=== PATIENT | female | born 1960 | race Caucasian/White ===

== ENCOUNTER → 2018-05-05 | Outpatient (CLI) | payer OTHER ==
[2018-05-04 10:13] VITALS: BMI 21.7
[2018-05-05 14:21] VITALS: BP 130/73; PULSE 62; RESP 18; TEMP 98.2
--- NOTE | 2018-05-05 15:03 | P.CONS ---
History of Present Illness - Reason for Consult Consult date: 05/05/18 - Chief Complaint Lower back pain - History of Present Illness This is a 57-year-old female with chronic lower back pain. The patient is to go to the left.. Clinic and she was getting injections there however she states that she did not get good results after these injections and she was taking Moran but because of lack of its presence in her urine she was discharged from that clinic. She said that they discussed with her having RF ablation of the lumbar medial branches however she never received that. Her pain gets worse by activities and improves by using heat pads. She does use tobacco on a daily basis. She denies any bowel or bladder dysfunction or any weakness in the lower extremities. Past Medical History Past Medical History: Cancer, Hyperlipidemia, Myocardial Infarction (ID) Additional Past Medical History / Comment(s): BREAST CANCER. SILENT ID-DATE UNKNOWN Last Myocardial Infarction Date:: UNKNOWN History of Any Multi-Drug Resistant Organisms: None Reported Past Surgical History: Breast Surgery, Heart Catheterization, Tonsillectomy Additional Past Surgical History / Comment(s): LT MASTECTOMY. STEROID INJECTIONS-LAST ONE 09/2017. COLONOSCOPY Past Anesthesia/Blood Transfusion Reactions: Motion Sickness Past Psychological History: Anxiety Smoking Status: Current some day smoker Past Alcohol Use History: None Reported Additional Past Alcohol Use History / Comment(s): SMOKES < 1PP WEEK-OFF AND ON PAST 20 YEARS Past Drug Use History: None Reported - Past Family History Brother(s) Family Medical History: Cancer Additional Family Medical History / Comment(s): 2 BROTHERS WITH CANCER Sister(s) Family Medical History: Cancer Medications and Allergies Home Medications Medication Instructions Recorded Confirmed Type Acetaminophen [Tylenol 8 Hour] 650 mg PO DAILY 05/04/18 05/05/18 History Aspirin EC [Ecotrin Low Dose] 81 mg PO DAILY 05/04/18 05/05/18 History Cholecalciferol [Vitamin D3] 1,000 unit PO DAILY 05/04/18 05/05/18 History Cyanocobalamin (Vitamin B-12) 2,500 mcg PO DAILY 05/04/18 05/05/18 History [Vitamin B12] Flaxseed 1400 Mg 1,400 mg PO DAILY 05/04/18 05/05/18 History Gabapentin [Neurontin] 300 mg PO BID 05/04/18 05/05/18 History Garlic-Cardio Health 1 each PO DAILY 05/04/18 05/05/18 History Glucosam/Flo-Msm1/C/Rene/Bosw 2 each PO DAILY 05/04/18 05/05/18 History [Glucosamine-Chondroitin Tablet] Ibuprofen [Motrin] 400 mg PO BID 05/04/18 05/05/18 History Magnesium Oxide [Mag-Ox] 250 mg PO HS 05/04/18 05/05/18 History Nitroglycerin Sl Tabs [Nitrostat] 0.4 mg SUBLINGUAL Q5M PRN 05/04/18 05/05/18 History Simvastatin [Zocor] 20 mg PO HS 05/04/18 05/05/18 History Tumeric-1500mg 3,000 mg PO DAILY 05/04/18 05/05/18 History Allergies Allergy/AdvReac Type Severity Reaction Status Date / Time alendronate sodium Allergy Nausea & Verified 05/05/18 14:07 [From Fosamax] Vomiting levofloxacin [From Levaquin] Allergy CHEST Verified 05/05/18 14:07 PAIN, WEAKNESS, NAUSEA meloxicam [From Mobic] Allergy Rapid Verified 05/05/18 14:07 Heart Rate Physical Exam Vitals: Vital Signs Temp Pulse Resp BP 05/05/18 14:09 98.2 F 62 18 130/73 - EENT Eyes: PERRLA - Respiratory Respiratory: bilateral: CTA - Cardiovascular Rhythm: regular Heart sounds: normal: S1, S2 - Neurologic Neurologic: CNII-XII intact - Musculoskeletal The patient has tenderness in the lumbar paravertebral area bilaterally. Straight leg raising test negative bilaterally. Neuro exam of the lower extremities showed normal and symmetrical muscle strength and decreased but symmetrical knee reflexes, and absent ankle reflexes bilaterally. Facet loading test is positive - Psychiatric Psychiatric: A&O x's 3, appropriate affect, intact judgment & insight Assessment and Plan Plan: This is a 57-year-old female with lumbar spondylosis without myelopathy. The patient may benefit from getting lumbar medial branch block under fluoroscopic guidance left she gets more than 50% of Kenalog then we will plan on doing radiofrequency ablation in the future. The procedure was explained to the patient and her questions were answered. I encouraged the patient to quit smoking. I also refused to give her any prescriptions for opioids at this point.
== END | disposition home or self-care (01) ==
LOC: PNWHC3 13:21
PROVIDERS: ATTEND Anesthesiology
DX: G89.29 Other chronic pain (principal); M54.5 Low back pain; M47.816 Spondylosis without myelopathy or radiculopathy, lumbar region; E78.5 Hyperlipidemia, unspecified; I25.2 Old myocardial infarction; F17.200 Nicotine dependence, unspecified, uncomplicated; F41.9 Anxiety disorder, unspecified; Z79.891 Long term (current) use of opiate analgesic; Z79.82 Long term (current) use of aspirin; Z79.1 Long term (current) use of non-steroidal anti-inflammatories (NSAID); Z79.899 Other long term (current) drug therapy; Z95.5 Presence of coronary angioplasty implant and graft; Z90.12 Acquired absence of left breast and nipple; Z98.890 Other specified postprocedural states; Z85.3 Personal history of malignant neoplasm of breast; Z88.1 Allergy status to other antibiotic agents; Z88.6 Allergy status to analgesic agent; Z88.8 Allergy status to other drugs, medicaments and biological substances
CPT/HCPCS: 99211

== ENCOUNTER 2018-06-13 09:07 | Day surgery (SDC) | payer OTHER ==
[2018-06-08 13:10] VITALS: BMI 21.9
[~2018-06-13 09:07] MED LIST: LACTATED RINGERS 1,000 ML IV SCH
[2018-06-13 09:48] VITALS: RESP 18; TEMP 98.1
[2018-06-13] MEDS ORDERED: LIDOCAINE 1% 20 ML VIAL (10MG/ML) FOR IV START INTRADERMA ONE (10:22)
--- NOTE | 2018-06-13 11:10 | P.PCN ---
Date of Procedure: 06/13/18 Surgeon: Tereza Lopez Pathology: none sent Condition: stable Disposition: PACU Description of Procedure: PREOPERATIVE DIAGNOSIS : 1- Lumbar spondylosis with Facet Arthropathy without myelopathy . 2- Lumber degenerative disc disease POSTOPERATIVE DIAGNOSIS: 1- Lumbar spondylosis with Facet Arthropathy without myelopathy . 2- Lumber degenerative disc disease PROCEDURE: Diagnostic bilateral L3 -4 , L4 -5 , and L5-S1 medial branch block under fluoroscopy ANESTHESIA: Local with 1% lidocaine; IV sedation with Versed 2 mg . EBL: Negligible COMPLICATION: None. PROCEDURE INDICATION: Chronic low back pain secondary to Facet arthropathy unresponsive to conservative treatment. PROCEDURE DESCRIPTION: the patient was seen and identified in the preop holding area , risks and benefits and possible complications of the procedure and alternatives were discussed with the patient, and the patient agreed to proceed with the procedure and signed the consent. IV was started and vital signs monitored during the procedure and fluoroscopy was used to maximize the benefit and accuracy of the needle placement, sedation was given to decrease patient anxiety, patient was taken to the procedure room and placed in prone position vital signs monitored. The patient was brought into the procedure room and placed in prone position. Skin was prepped with Chloraprep and draped in a sterile manner. Lidocaine 1 % was used to numb the skin up at the target points that were chosen as follows : at the L5-S1 level which corresponds to the dorsal ramus of L5 the target points were at the superior medial aspect of the sacral ala on each side of the spine on the AP view of fluoroscopy, and for the L3 and L4 medial branches the target points were the connection between the transverse process and the superior to go process of L4 and L5 respectively on the oblique views of fluoroscopy. I used 22-gauge 3-1/2 inch Quincke spinal needles for this procedure and after contacting bone at the target points mentioned above I injected 1 mL of ropivacaine 0.5% PF . Patient tolerated procedure well. At the end of the procedure the needles removed and a bandage applied after the skin was cleaned the cleaning solution. patient was then taken to the recovery room in stable condition and monitored in the recovery room for 20-30 minutes and discharged home in stable condition after discharge criteria met . No steroids were used for this procedure due to the patient's sensitivity to steroids.
[2018-06-13] MEDS ORDERED: IV FLUID CONTINUATION 700 ML IV ONE (11:23)
--- NOTE | 2018-06-13 11:29 | FL ---
EXAMINATION TYPE: FL guided pain mgmt statistic DATE OF EXAM: 06/13/2018 CLINICAL HISTORY: Low back pain. TECHNIQUE: Fluoroscopy. COMPARISON: None. FINDINGS: Fluoroscopic guidance was provided during pain relief procedure performed by Dr. Lopez . A total of 7 seconds of fluoroscopic time was utilized during the procedure and 3 spot images are a cquired. Images acquired shows needle localization at L5 level. IMPRESSION: As Above.
[2018-06-13 11:44] VITALS: BP 116/72; PULSE 62
--- NOTE | 2018-06-15 14:53 | CDI ---
Date: 06/15/18 CDS/Word Processing Machine Operator Name: Marguerite Burton Phone: If any questions, call Nancy Aguilar Habilitation Training Specialist at [phone] Patient Name: Samira Howard Admit Date: 06/13/18 Discharge Date: 06/13/18 ATTENTION: The [facility] Coding Staff appreciate your assistance in clarifying documentation. Please respond to the clarification below the line at the bottom and electronically sign. The [facility] Coding staff will review the response and follow-up if needed. Please note: Queries are made part of the Legal Health Record. If you have any questions, please contact the Habilitation Training Specialist. Dear Dr. Lopez, Please provide clarification of the type of sedation provided. Operative report states IV sedation with versed. On the Pain Procedure Record under Anesthesia Plan, nothing is checked. Please clarify if MAC/unconscious sedation or Moderate/conscious sedation was provided. Thank you for your kind consideration MTDD
== END 2018-06-13 11:55 | disposition home or self-care (01) ==
LOC: ORPAIN 09:07
PROVIDERS: ATTEND Anesthesiology
DX: G89.29 Other chronic pain (principal); M47.816 Spondylosis without myelopathy or radiculopathy, lumbar region; M51.36 Other intervertebral disc degeneration, lumbar region; I25.2 Old myocardial infarction; Z85.3 Personal history of malignant neoplasm of breast; Z88.6 Allergy status to analgesic agent; Z88.8 Allergy status to other drugs, medicaments and biological substances
CPT/HCPCS: 64493; 64494; 64495; J2250; 99152

== ENCOUNTER 2018-06-27 08:07 | Day surgery (SDC) | payer OTHER ==
[2018-06-21 11:56] VITALS: BMI 21.9
[2018-06-27] MEDS ORDERED: LACTATED RINGERS 1,000 ML IV ONE (08:24)
[2018-06-27 08:35] VITALS: RESP 18; TEMP 97.8
[2018-06-27] MEDS ORDERED: LIDOCAINE 1% 20 ML VIAL (10MG/ML) FOR IV START INTRADERMA ONE (08:35)
[2018-06-27 08:46] LABS: Glucose,Whole Blood 101 mg/dL (75-99)
--- NOTE | 2018-06-27 09:56 | P.PCN ---
Date of Procedure: 06/27/18 Description of Procedure: Surgeon: Tereza Lopez Pathology: none sent Condition: stable Disposition: PACU Description of Procedure: PREOPERATIVE DIAGNOSIS : 1- Lumbar spondylosis with Facet Arthropathy without myelopathy . 2- Lumber degenerative disc disease POSTOPERATIVE DIAGNOSIS: 1- Lumbar spondylosis with Facet Arthropathy without myelopathy . 2- Lumber degenerative disc disease PROCEDURE: Diagnostic bilateral L3 -4 , L4 -5 , and L5-S1 medial branch block under fluoroscopy ANESTHESIA: Local with 1% lidocaine; IV sedation with Versed 2 mg . EBL: Negligible COMPLICATION: None. PROCEDURE INDICATION: Chronic low back pain secondary to Facet arthropathy unresponsive to conservative treatment. PROCEDURE DESCRIPTION: the patient was seen and identified in the preop holding area , risks and benefits and possible complications of the procedure and alternatives were discussed with the patient, and the patient agreed to proceed with the procedure and signed the consent. IV was started and vital signs monitored during the procedure and fluoroscopy was used to maximize the benefit and accuracy of the needle placement, sedation was given to decrease patient anxiety, patient was taken to the procedure room and placed in prone position vital signs monitored. The patient was brought into the procedure room and placed in prone position. Skin was prepped with Chloraprep and draped in a sterile manner. Lidocaine 1 % was used to numb the skin up at the target points that were chosen as follows : at the L5-S1 level which corresponds to the dorsal ramus of L5 the target points were at the superior medial aspect of the sacral ala on each side of the spine on the AP view of fluoroscopy, and for the L3 and L4 medial branches the target points were the connection between the transverse process and the superior to go process of L4 and L5 respectively on the oblique views of fluoroscopy. I used 22-gauge 3-1/2 inch Quincke spinal needles for this procedure and after contacting bone at the target points mentioned above I injected 1 mL of ropivacaine 0.5% PF . Patient tolerated procedure well. At the end of the procedure the needles removed and a bandage applied after the skin was cleaned the cleaning solution. patient was then taken to the recovery room in stable condition and monitored in the recovery room for 20-30 minutes and discharged home in stable condition after discharge criteria met . No steroids were used for this procedure due to the patient's sensitivity to steroids.
--- NOTE | 2018-06-27 10:03 | FL ---
EXAMINATION TYPE: FL guided pain mgmt statistic DATE OF EXAM: 06/27/2018 HISTORY: Flouroscopy time 20 seconds of fluoroscopy provided. IMPRESSION: 1. Fluoroscopy time.
[2018-06-27] MEDS ORDERED: IV FLUID CONTINUATION 1,000 ML IV ONE ×2 (10:07)
[2018-06-27 10:36] VITALS: BP 106/67; PULSE 69
--- NOTE | 2018-06-29 13:23 | CDI ---
Date: 06/29/18 CDS/Quality Management Nurse Name: Marguerite Burton Phone: If any questions, call Nancy Aguilar Release Coordinator at [phone] Patient Name: Samira Howard Admit Date: 06/27/18 Discharge Date: 06/27/18 ATTENTION: The [facility] Coding Staff appreciate your assistance in clarifying documentation. Please respond to the clarification below the line at the bottom and electronically sign. The [facility] Coding staff will review the response and follow-up if needed. Please note: Queries are made part of the Legal Health Record. If you have any questions, please contact the Release Coordinator. Dear Dr. Lopez, Please provide clarification as to the type of sedation provided. Please clarify if the sedation that was provided was MAC/Unconscious or Moderate/ conscious sedation. Thank you for your kind consideration. MTDD
== END 2018-06-27 10:50 | disposition home or self-care (01) ==
LOC: ORPAIN 08:07
PROVIDERS: ATTEND Anesthesiology
DX: G89.29 Other chronic pain (principal); M47.816 Spondylosis without myelopathy or radiculopathy, lumbar region; I95.9 Hypotension, unspecified; E16.2 Hypoglycemia, unspecified; M19.90 Unspecified osteoarthritis, unspecified site; Z88.6 Allergy status to analgesic agent; Z88.8 Allergy status to other drugs, medicaments and biological substances
CPT/HCPCS: 64493; 64494; 64495; J2250; J2001; 99152

== ENCOUNTER → 2018-07-26 | Outpatient (CLI) | payer OTHER ==
[2018-07-26 12:45] VITALS: BP 125/71; PULSE 73; RESP 18
--- NOTE | 2018-07-26 13:42 | P.PAINPG ---
Subjective Progress Note Date: 07/26/18 This is a follow-up visit for this 57-year-old female with a chronic history of severe low back pain, patient diagnosed with lumbar spondylosis, and lumbar degenerative disc disease, and left hip osteoarthritis, we have done diagnostic medial branch block lumbar area L3 to S1 , 2 , and she is here today to discuss the result of the block, patient reported that she got less than 25% improvement of her low back pain after each block, for this reason she is not a candidate for radiofrequency ablation of the medial branch lumbar area, also patient is not a candidate to have lumbar epidural steroid injections because she had side effects/ALLERGY to steroid , currently she is on Neurontin 300 mg twice a day and naproxen 500 mg twice a day and Flexeril 5 mg twice a day she denies any side effect of the medication and she reports the current medication helping minimally to control her pain Objective - Vital Signs Vital signs: Vital Signs Temp Pulse 73 07/26/18 12:32 Resp 18 07/26/18 12:32 BP 125/71 07/26/18 12:32 Pulse Ox 98 07/26/18 12:32 Intake & Output 07/25/18 07/26/18 07/26/18 18:59 06:59 18:59 Weight 62.596 kg - Exam Physical Examinations : 1-Constitutiona : Cooperative , not in acute distress . 2-HEENT : nech ; supple , no Lymphadenopathy , normal thyroid size . eyes : no ptosis , no icterus, no photophobia . ENT : normal of hearing , normal oropharynx , no Thrush . 3- Respiratory : Chest clear to auscultations Bilaterally , no wheezing , no Rhonchi . 4- Cardiovascular : regular rate and rhythem , S1 , S2 , no S3 , no S4. 5- Gastrointestinal : abdomen soft no tenderness , bowel sounds , no organomegally . 6- Genitourinary : Defferred . 7- neurologic : Cranial nerve II to XII intact , no focal neurological deffecit . 8-psychatric : alert , oriented X 3 , appropriate affect , intact judgment and insight . 9-Lymphatic : no Lymphadenopathy . 10- musculoskeltal : Lumber spine moter stegnth lower extremities , thigh and legs 5/5 Right side , 5/5 Left side deep tendon reflexes : normal Knee Jerk , normal ankle Jerk positive lumber facet Loading Test Range of motion of the lumbar spine Flexion 30 degrees, extension 10 degrees strait leg raising test , positive at 30 degree Fabere test positive RT and positive LT . Abduction and abduction on lateral rotation of the left hip associated with severe pain Assessment and Plan Plan: Assessment and plan= chronic low back pain secondary to lumbar spondylosis and lumbar degenerative disc disease Left hip osteoarthritis. Patient had negative result after diagnostic medial branch block, for this reason ,she is not a candidate ,to have radiofrequency ablation of the medial branch lumbar area. Patient is not a candidate to have lumbar epidural steroid injection because she has an ALLERGY to steroid injection. Patient could benefit from left hip replacement , and advised patient to see orthopedic surgeon for evaluation for evaluation for possible Hip replacement Time with Patient: Less than 30 PQRS Measure Charge Sheet Measure #130: Documentation of Current Meds in Medical Chart: Patient's medications documented in chart Measure #226: Tobacco Use: Screen & Cessation Intervention: Pt not a tobacco user Measure #111: Pneumonia Vaccination: Pneumococcal vaccine NOT administered or previously given Measure #47: Advance Care Plan: Advance care planning discussed & documented, pt chose/unable to give Measure #412: Opioid Treatment Agreement: No documentation of signed opioid treatment agreement Measure #408: Opioid Therapy Follow-up Evaluation: Patient had NO f/u eval minimum every 3 months during opioid therapy Measure #317: Preventitive Care & Scrn High Bld Press & F/U: Normal blood pressure, f/u not required Measure #128: Body Mass Index (BMI) Screening & Follow-up: BMI documented within normal parameters Measure #131: Pain Assessment & Follow-up: Pain positive & plan documented, Follow-up scheduled Measure #431: Unhealthy Alcohol Use Preventative Care & Scrn: Patient not identified as an unhealthy alcohol user PQRS Narrative: Smoking Status Former smoker Do You Want the Pneumonia Vaccine Up to Date Vaccine AT THIS TIME? Blood Pressure 125/71 Pain Intensity [Left Hip] 8 Pain Intensity [Lower Back] 4 Hx Alcohol Use (MH) No Home Medications: Ambulatory Orders Acetaminophen [Tylenol 8 Hour] 650 mg PO DAILY 05/04/18 Aspirin EC [Ecotrin Low Dose] 81 mg PO DAILY 05/04/18 Cholecalciferol [Vitamin D3] 1,000 unit PO DAILY 05/04/18 Cyanocobalamin (Vitamin B-12) [Vitamin B12] 2,500 mcg PO DAILY 05/04/18 Flaxseed 1400 Mg 1,400 mg PO DAILY 05/04/18 Gabapentin [Neurontin] 300 mg PO BID 05/04/18 Garlic-Cardio Health 1 each PO DAILY 05/04/18 Glucosam/Flo-Msm1/C/Rene/Bosw [Glucosamine-Chondroitin Tablet] 2 each PO DAILY 05/04/18 Magnesium Oxide [Mag-Ox] 250 mg PO HS 05/04/18 Nitroglycerin Sl Tabs [Nitrostat] 0.4 mg SUBLINGUAL Q5M PRN 05/04/18 Simvastatin [Zocor] 20 mg PO HS 05/04/18 Albuterol Inhaler [Ventolin Hfa Inhaler] 2 puff INHALATION BID 06/08/18 Fluticasone Nasal [place] [Flonase Nasal [place]] 1 spray EA NOSTRIL DAILY PRN 06/08 Turmeric Root Extract [Turmeric] 3,000 mg PO DAILY 06/08/18 Gwen Root 2 cap PO BID-W/MEALS PRN 06/13/18 Naproxen 500 mg PO DAILY 06/21/18 Cyclobenzaprine [Flexeril] 5 mg PO BID 07/26/18 Controlled Substance Measures - Controlled Substance Measures Is patient prescribed a controlled substance at discharge?: No When asked, does pt state using other controlled substances?: No If prescribed controlled substance>3 days was MAPS reviewed?: No If Rx opioid, was Start Talking consent form obtained?: No If opioid is for acute pain is fill amount 7 days or less?: No Was information provided regarding opioid addiction?: No
== END | disposition home or self-care (01) ==
LOC: PNWHC3 12:20
PROVIDERS: ATTEND Specialist
DX: G89.29 Other chronic pain (principal); M51.36 Other intervertebral disc degeneration, lumbar region; M47.816 Spondylosis without myelopathy or radiculopathy, lumbar region; M16.12 Unilateral primary osteoarthritis, left hip; Z87.891 Personal history of nicotine dependence; Z79.899 Other long term (current) drug therapy; Z79.82 Long term (current) use of aspirin; Z79.1 Long term (current) use of non-steroidal anti-inflammatories (NSAID)
CPT/HCPCS: 99211

== ENCOUNTER → 2018-10-07 | Outpatient (CLI) | payer OTHER ==
[2018-10-07 11:23] LABS: Appearance,Urine Clear (Clear); Bacteria,Urine Rare /hpf; Bilirubin,Urine Negative (Negative); Blood,Urine Small (Negative); Color,Urine Light Yellow; Glucose,Urine (UA) Negative (Negative); Ketones,Urine Negative (Negative); Leukocyte Esterase,Urine Small (Negative); Nitrite,Urine Negative (Negative); PH, Urine 6.5 (5.0-8.0); Protein,Urine Negative (Negative); RBC,Urine 2 /hpf (0-5); Specific Gravity,Urine 1.004 (1.001-1.035); Squamous Epithelial Cell,Urine 1 /hpf (0-4); Urobilinogen,Urine <2.0 mg/dL (<2.0); WBC,Urine 2 /hpf (0-5)
[2018-10-07 11:31] LABS: ALT 28 U/L (9-52); AST 27 U/L (14-36); Albumin 4.7 g/dL (3.5-5.0); Alkaline Phosphatase 74 U/L (38-126); Anion Gap 9 mmol/L; Blood Urea Nitrogen 16 mg/dL (7-17); Calcium 10.1 mg/dL (8.4-10.2); Carbon Dioxide 28 mmol/L (22-30); Chloride 102 mmol/L (98-107); Glucose 91 mg/dL (74-99); Potassium 4.6 mmol/L (3.5-5.1); Sodium 139 mmol/L (137-145); Total Bilirubin 0.9 mg/dL (0.2-1.3); Total Protein 7.4 g/dL (6.3-8.2)
[2018-10-07 11:38] LABS: Partial Thromboplastin Time 26.3 sec (22.0-30.0); Prothrombin Time 10.5 sec (9.0-12.0)
[2018-10-07 12:07] LABS: HCT 39.9 % (34.0-46.0); MCH 31.2 pg (25.0-35.0); MCHC 32.5 g/dL (31.0-37.0); Mean Platelet Volume 7.1; Platelet Count 285 k/uL (150-450); RBC 4.16 m/uL (3.80-5.40); RDW 12.4 % (11.5-15.5); WBC 9.4 k/uL (3.8-10.6)
== END ==
LOC: LABPAT 10:29
PROVIDERS: ATTEND Orthopaedic Surgery
DX: Z01.812 Encounter for preprocedural laboratory examination (principal); M16.12 Unilateral primary osteoarthritis, left hip
CPT/HCPCS: 36415; 80053; 81001; 85027; 85610; 85730; 87070

== ENCOUNTER 2018-10-17 05:41 | Inpatient (IN) | payer OTHER ==
[2018-10-10 16:57] VITALS: BMI 22.2
[~2018-10-17 05:41] MED LIST changes: +ACETAMINOPHEN TAB 500 MG TAB PO ONE; -LACTATED RINGERS 1,000 ML IV SCH
[2018-10-17] MEDS ORDERED: DEXAMETHASONE SOD PHOSPHATE 10 MG/ML 1 ML VIAL IV ONE (05:50)
[2018-10-17] MEDS ORDERED: SCOPOLAMINE 1.5MG/72HR PATCH TRANSDERM ONE (05:50)
[2018-10-17] MEDS ORDERED: LIDOCAINE 1% 20 ML VIAL (10MG/ML) FOR IV START INTRADERMA PRN (05:50)
[2018-10-17] MEDS ORDERED: ONDANSETRON 4 MG/2 ML VIAL IVP ONE (05:50)
[2018-10-17] MEDS ORDERED: TRANEXAMIC ACID 1,000 MG in SODIUM CHLORIDE 0.9% 50 ML IVPB ONE ×4 (06:00)
[2018-10-17] MEDS ORDERED: ceFAZolin IN SWFI 2 GM/20 ML SYRINGE IVP ONE (06:00)
[2018-10-17] MEDS: LACTATED RINGERS 1,000 ML IV SCH (06:21)
[2018-10-17] MEDS ORDERED: ROPIVACAINE 246.25 MG, EPINEPHrine 0.5 MG, KETOROLAC 30 MG, cloNIDine HCL/PF 80 MCG, WA... MISCELLANE ONE ×5 (06:30)
[2018-10-17] MEDS ORDERED: fentaNYL (PF) 50 MCG/ML 2 ML AMP IV PRN (06:32)
[2018-10-17] MEDS ORDERED: fentaNYL (PF) 50 MCG/ML 2 ML AMP IV ONE (06:38)
[2018-10-17] MEDS ORDERED: ceFAZolin 3,000 MG in SODIUM CHLORIDE 0.9% IRRIGATIO 3,000 ML IRRIGATION ONE (06:57)
[2018-10-17] MEDS ORDERED: NALOXONE 0.4 MG/ML 1 ML VIAL IV PRN (07:02)
[2018-10-17] MEDS ORDERED: ONDANSETRON 4 MG/2 ML VIAL IVP PRN (07:02)
[2018-10-17] MEDS ORDERED: HYDROcodone/APAP 5-325MG 1 EACH TAB PO PRN (07:02)
[2018-10-17] MEDS ORDERED: DIAZEPAM 5 MG TAB PO PRN (07:02)
[2018-10-17] MEDS ORDERED: HYDROmorphone 0.5 MG/0.5 ML SYRINGE IVP PRN ×2 (07:02)
[2018-10-17] MEDS ORDERED: HYDROmorphone 1 MG/ML 1 ML SYRINGE IVP PRN (07:02)
[2018-10-17] MEDS ORDERED: hydrOXYzine PAMOATE 25 MG CAP PO PRN (07:02)
[2018-10-17] MEDS ORDERED: MAGNESIUM HYDROXIDE 2,400 MG/10 ML CUP PO PRN (07:02)
[2018-10-17] MEDS ORDERED: HEPARIN SODIUM,PORCINE 10,000 UNIT/ML 1 ML VIAL ONE (07:54)
[2018-10-17] MEDS ORDERED: PROPOFOL 10 MG/ML 20 ML VIAL IV ONE (07:54)
[2018-10-17] MEDS ORDERED: LACTATED RINGERS 1,000 ML BAG IV ONE (07:54)
[2018-10-17] MEDS ORDERED: fentaNYL (PF) 50 MCG/ML 2 ML AMP ONE (07:54)
[2018-10-17] MEDS ORDERED: MIDAZOLAM 2 MG/2 ML VIAL ONE (07:54)
--- NOTE | 2018-10-17 08:33 | P.OP ---
Date of Procedure: 10/17/18 Preoperative Diagnosis: Severe osteoarthritis left hip Postoperative Diagnosis: Severe osteoarthritis left hip Procedure(s) Performed: Left total hip arthroplasty with a direct anterior approach Implants: Gallegos and nephew Polarstem size 4 standard [employer]legos [employer] Nephew R3, 3 hole acetabular shell, 52 mm [employer]hew reflection 6.5 mm cancellus screw, 20 mm, 15 mm [employer]hew R3, XLPE 20 acetabular liner Gallegos [employer] Nephew Oxinium femoral head 36 m, +0 All components were press-fit. The articulation is Oxinium on polyethylene. Anesthesia: spinal Surgeon: Sabas Pearson First Line Production Supervisor #1: Skye Dillon Estimated Blood Loss (ml): 150 (65 mL returned with Cell Saver) Pathology: other (Femoral head) Condition: stable Disposition: PACU Indications for Procedure: After failure of conservative treatment we discussed the surgical and nonsurgical treatment options at length. Patient wishes to proceed with a total hip arthroplasty with a direct anterior approach. Complications specific to this procedure were discussed at length, including but not limited to infection, leg length discrepancy, dislocation, and nerve injury. Patient is aware of all these complications and informed consent was obtained Operative Findings: The operative findings are consistent with severe osteoarthritis of the left hip Description of Procedure: Patient was seen and evaluated in the preoperative area, consent was reviewed, and the surgical site was marked with a skin marker. Patient was then brought to the operating room and given prophylactic antibiotics intravenously. 1 g of Tranexamic acid was also given. A spinal anesthetic was administered by the anesthesia department. The patient was then placed on the [place] table with the bony prominences well-padded. The hip area was then prepped and draped in usual sterile fashion. A universal timeout was then performed, which confirmed the patient's name, surgical site, ALLERGIES, and procedure being performed. Next the incision site was located at 1 cm distal and 1 cm lateral to the anterior superior iliac spine. The skin and subcutaneous tissues were sharply incised. Incision was carefully dissected down to the fascia overlying the tensor fascia manjinder muscle. This fascia was then incised in line with the incision. Next, using blunt finger dissection, the tensor fascia manjinder muscle was dissected off its investing fascia. The muscle was then carefully retracted laterally with a cobra retractor over the lateral neck of the femur. Next, the circumflex vessels were identified and cauterized using the AquaMantis device. The anterior hip capsule was then exposed. The capsule was then opened and an inverted T fashion. Cobra retractors were then placed intracapsularly. The proximal femur was then visualized. The femoral neck was then osteotomized appropriate level above the lesser trochanter. Small amount of traction was placed with the [place] table. A small wedge of bone was then removed from the remaining femoral head. Next, using a corkscrew femoral head was easily removed from the acetabulum. On gross visual inspection, the femoral head had complete loss of articular cartilage in multiple periarticular osteophytes. Attention was then turned to the acetabulum. the acetabulum was exposed and any remaining labrum was excised. Sequential reaming of the acetabulum was performed using fluoroscopic guidance. When the appropriate size was reached, a trial was then placed. The position and fit of the trial was checked with fluoroscopy. The trial was then removed. Then, using fluoroscopic guidance, the final implant was impacted at 20 of anteversion and 40 of abduction, and fully seated in the acetabulum. 2 screws were then placed in the acetabulum. Again fluoroscopy was used to check position of the screws. Next, the liner was then impacted, with a 20 elevated liner located in the anterior superior quadrant. Component locking was confirmed. Attention was then directed to the femur. With the aid of the [place] table, the femur was externally rotated to approximately 130, extended, and abducted under the opposite leg. A side hook was then placed under the proximal femur, and the side hook elevator was used to elevate the proximal femur. Retractors were then placed. A capsular release was performed, as well as a release of the conjoined tendon, which afforded excellent visualization of the proximal femur. Next, a box osteotome was used to lateralize the proximal femur. A coke handling supervisor was then used to locate the femoral canal. Sequential broaching was then performed with appropriate size which afforded excellent fixation in the proximal femur. A trial was then placed with appropriate head and neck, and the hip was gently reduced with the aid of the [place] table. Fluoroscopy was then used to check position of the components, as well as to ensure equal leg lengths. The hip was then gently dislocated and the trials were then removed. Final implants were then impacted and the hip was again reduced. Final fluoroscopic x-rays confirmed that the components were in anatomic position, as well as equal leg lengths. The hip was also taken through range of motion, and found to be stable. The hip was then copiously irrigated with antibiotic solution with pulsatile lavage. The hip was then irrigated with Irrisept solution. The soft tissues were then injected with a ropivacaine solution, which consisted of 246.25 mg of ropivacaine, 0.5 mg of epinephrine, 30 mg of Toradol, 80 g of clonidine, and 48.45 mL of sterile water, for a total of 100 mL of fluid injected. A second dose of 1 g of Tranexamic acid was also given. the fascia was then closed with 2-0 strata fix suture. The subcutaneous tissue was closed with 3-0 Vicryl. The subcuticular tissue was closed with 3-0 strata fix suture. The skin was then closed with Dermabond glue and a sterile silver dressing. The patient was then transferred to the recovery room in stable condition. The residential assistant DIONY Barnes was required due to the complexity of surgery, and the need for skilled medical surgical tech for positioning, draping, exposure, retraction, and closure of the wound.
[2018-10-17] MEDS ORDERED: LACTATED RINGERS 1,000 ML IV ONE ×2 (08:40)
[2018-10-17] MEDS: HYDROmorphone 0.5 MG/0.5 ML SYRINGE IVP PRN ×2 (08:54→09:05)
--- NOTE | 2018-10-17 09:20 | XR ---
EXAMINATION TYPE: XR Hip Limited LT DATE OF EXAM: 10/17/2018 COMPARISON: NONE HISTORY: 57-year-old female status post hip surgery, assess surgical alignment TECHNIQUE: AP portable view FINDINGS: Image shows placement of left hip total arthroplasty. Both acetabular cup and femoral short stemmed c omponents of the prosthesis appear well seated without periprosthetic fracture. Alignment grossly salma tomic. There is scattered soft tissue air compatible with recent operation. IMPRESSION: Uncomplicated postoperative appearance left total hip arthroplasty.
[2018-10-17] MEDS ORDERED: FLUTICASONE 50MCG/SPRAY NASAL 16GM EA NOSTRIL PRN (10:51)
[2018-10-17] MEDS ORDERED: NITROGLYCERIN SL TABS 0.4 MG TAB SUBLINGUAL PRN (10:51)
--- NOTE | 2018-10-17 12:55 | P.CONS ---
History of Present Illness - Reason for Consult Consult date: 10/17/18 Consulted for medical management Requesting physician: Sabas Pearson - Chief Complaint Consulted for medical management - History of Present Illness The patient is a 57-year-old female with a past medical history hyperlipidemia, degenerative disc disease and left hip osteoarthritis who has failed conservative treatments such as physical therapy, cortisone and epidural injections who is currently admitted to orthopedic service and is postop day #0 status post left total hip arthroplasty anterior approach secondary to severe left hip osteoarthritis. The patient is doing well is able to move her legs, reports her pain is well controlled. She denies any chest pain, she denies shortness of air, she denies nausea vomiting abdominal pain. Review of records indicates the patient received Dilaudid, cefazolin and will lactated Ringer's and that her blood pressure is borderline systolic in the mid 80s. She reports that she typically has low blood pressures, she currently denies any lightheadedness dizziness or confusion or blurry vision Review of Systems Improvement positives per HPI, all other review of systems are otherwise negative Past Medical History Past Medical History: Asthma, Blood Disorder, Cancer, Hyperlipidemia, Myocardial Infarction (NM), Osteoarthritis (OA), Pneumonia Additional Past Medical History / Comment(s): PAST Hx Anemia. BREAST CANCER 2008, fluid build up around heart due to radiation & SCARRING LUNG. Chronic hip , back pain. NL Low BP. Hx hypoglycemia. Hx Pneumonia >3 yrs ago. VARICOSE VEINS LT LEG. SILENT NM-DATE UNKNOWN. Last Myocardial Infarction Date:: UNKNOWN History of Any Multi-Drug Resistant Organisms: None Reported Past Surgical History: Breast Surgery, Heart Catheterization, Tonsillectomy Additional Past Surgical History / Comment(s): LEFT MASTECTOMY. STEROID INJECTIONS. COLONOSCOPY. Heart Cath 05/02/18. Past Anesthesia/Blood Transfusion Reactions: Motion Sickness Smoking Status: Current every day smoker - Past Family History Brother(s) Family Medical History: Cancer Additional Family Medical History / Comment(s): 2 BROTHERS WITH CANCER Sister(s) Family Medical History: Cancer Medications and Allergies Home Medications Medication Instructions Recorded Confirmed Type Acetaminophen [Tylenol 8 Hour] 650 mg PO Q8H PRN 05/04/18 10/17/18 History Aspirin EC [Ecotrin Low Dose] 81 mg PO DAILY 05/04/18 10/17/18 History Cholecalciferol [Vitamin D3] 1,000 unit PO DAILY 05/04/18 10/17/18 History Cyanocobalamin (Vitamin B-12) 2,500 mcg PO DAILY 05/04/18 10/17/18 History [Vitamin B12] Flaxseed 1400 Mg 1,400 mg PO DAILY 05/04/18 10/17/18 History Garlic-Cardio Health 1 each PO DAILY 05/04/18 10/17/18 History Magnesium Oxide [Mag-Ox] 250 mg PO HS 05/04/18 10/17/18 History Nitroglycerin Sl Tabs [Nitrostat] 0.4 mg SUBLINGUAL Q5M PRN 05/04/18 10/17/18 History Simvastatin [Zocor] 20 mg PO HS 05/04/18 10/17/18 History Albuterol Inhaler [Ventolin Hfa 2 puff INHALATION RT-BID 06/08/18 10/17/18 History Inhaler] Fluticasone Nasal [place] [Flonase 1 spray EA NOSTRIL DAILY PRN 06/08/18 10/17/18 History Nasal [place]] Turmeric Root Extract [Turmeric] 3,000 mg PO DAILY 06/08/18 10/17/18 History Gwen Root 2 cap PO BID-W/MEALS PRN 06/13/18 10/17/18 History Cyclobenzaprine [Flexeril] 5 mg PO BID PRN 07/26/18 10/17/18 History Atorvastatin [Lipitor] 20 mg PO DAILY 10/10/18 10/17/18 History Collgen Pure 2 cap PO DAILY 10/10/18 10/17/18 History Glucosamine/Chondr Saba A Sod [Osteo 2 each PO DAILY 10/10/18 10/17/18 History Bi-Flex Caplet] Allergies Allergy/AdvReac Type Severity Reaction Status Date / Time alendronate sodium Allergy Nausea & Verified 10/17/18 09:20 [From Fosamax] Vomiting levofloxacin [From Levaquin] Allergy CHEST Verified 10/17/18 09:20 PAIN, WEAKNESS, NAUSEA meloxicam [From Mobic] Allergy Rapid Verified 10/17/18 09:20 Heart Rate Steroid Injection Allergy Nausea Uncoded 10/10/18 16:15 Physical Exam Vitals: Vital Signs Temp Pulse Pulse Resp BP Pulse Ox 10/17/18 09:10 60 18 92/42 97 10/17/18 08:55 54 L 18 90/49 97 10/17/18 08:40 98.6 F 85 20 104/49 98 10/17/18 06:08 98.1 F 67 16 123/56 98 Intake and Output 10/16/18 10/17/18 10/17/18 22:59 06:59 14:59 Intake Total 1001 50 Output Total 150 Balance 1001 -100 Intake: IV 1001 50 Output: Estimated Blood Loss 150 Constitutional: No acute distress, conversant, pleasant Eyes: Anicteric sclerae, moist conjunctiva, no lid-lag, PERRLA ENMT: NC/AT,Oropharynx clear, no erythema, exudates Neck:Supple, FROM, no masses, or JVD, No carotid bruits; No thyromegaly Lungs: Clear to auscultation, Clear to percussion, Normal respiratory effort, no accessory muscle use Cardiovascular: Heart regular in rate and rhythm, No murmurs, gallops, or rubs no peripheral edema Abdominal: Soft Nontender, nom distended, no guarding, no rebound or rigidity, Normoactive bowel sounds No hepatomegaly, No splenomegaly, No palpable mass No abdominal wall hernia noted Skin: Normal temperature, tone, texture, turgor, No induration No subcutaneous nodules, No rash, lesions, No ulcers Extremities:No digital cyanosis No clubbing, Pedal pulses intact and symmetrical Radial pulses intact and symmetrical gait not assessed, no calf tenderness Psychiatric: Alert and oriented to person, place and time, Appropriate affect Intact judgement Neuro: Muscles Strength 5/5 in all 4 extremities, Sensation to light touch grossly present throughout, Cranial nerves II-XII grossly intact. No focal sensory deficits Assessment and Plan (1) Hyperlipidemia Current Visit: Yes Status: Acute Code(s): E78.5 - HYPERLIPIDEMIA, UNSPECIFIED SNOMED Code(s): 27875984 (2) Degenerative disc disease, lumbar Current Visit: Yes Status: Acute Code(s): M51.36 - OTHER INTERVERTEBRAL DISC DEGENERATION, LUMBAR REGION SNOMED Code(s): 21088148 (3) Osteoarthritis of left hip Current Visit: Yes Status: Acute Code(s): M16.12 - UNILATERAL PRIMARY OSTEOARTHRITIS, LEFT HIP SNOMED Code(s): 191419217714032 (4) History of total left hip arthroplasty Current Visit: Yes Status: Acute Code(s): Z96.642 - PRESENCE OF LEFT ARTIFICIAL HIP JOINT SNOMED Code(s): 532326008287 Plan: The patient is admitted to orthopedic service and is postop day #0 status post left hip arthroplasty secondary to severe left hip osteoarthritis. She is doing well, blood pressures are borderline however she is asymptomatic. We'll defer to primary team regarding ongoing analgesic therapy. We'll resume her home medications see med rec. We'll continue to follow her clinical course I appreciate the opportunity being involved in the care of this patient. For any further questions please do not hesitate to contact us on the patient will be in by his never ever a actually like everything every patient is at least on [address] [place] and
[2018-10-17] MEDS: SODIUM CHLORIDE 0.9% 1,000 ML IV SCH ×2 (13:25→22:51)
[2018-10-17] MEDS: HYDROcodone/APAP 5-325MG 1 EACH TAB PO PRN ×2 (13:29→18:33)
[2018-10-17] MEDS: ceFAZolin IN SWFI 2 GM/20 ML SYRINGE IVP SCH ×2 (15:48→23:53)
--- NOTE | 2018-10-17 17:49 | XR ---
EXAMINATION TYPE: XR Hip Limited LT DATE OF EXAM: 10/17/2018 COMPARISON: 10/17/2018 HISTORY: Postop TECHNIQUE: Single view FINDINGS: There is left hip prosthesis. Components appear in anatomic position. IMPRESSION: Left hip prosthesis appears in good position. No change compared to exam earlier today. N o fracture seen.
--- NOTE | 2018-10-17 18:02 | FL ---
EXAMINATION TYPE: FL guidance operating room, XR Hip Limited LT DATE OF EXAM: 10/17/2018 FINDINGS: Images during total left hip arthroplasty. FLUOROSCOPY Fluoroscopy time of 50 seconds was used during left anterior hip replacement. 2 image/s document/s t he procedure. IMPRESSION: Intraoperative fluoroscopy as above.
[2018-10-17] MEDS: ASPIRIN 325 MG TAB PO SCH (20:48)
[2018-10-17] MEDS: SENNOSIDES-DOCUSATE SODIUM 1 EACH TAB PO SCH (20:48)
[2018-10-17] MEDS: MAGNESIUM OXIDE 400 MG TAB PO SCH (20:48)
[2018-10-18] MEDS: LACTATED RINGERS 1,000 ML IV SCH (01:37)
[2018-10-18] MEDS: HYDROcodone/APAP 5-325MG 1 EACH TAB PO PRN ×3 (06:15→19:12)
[2018-10-18 08:25] LABS: Basophils % (A) 0 %; Eosinophils # (A) 0.1 k/uL (0-0.7); Eosinophils % (A) 1 %; HCT 28.6 % (34.0-46.0); Lymphocytes # (A) 2.2 k/uL (1.0-4.8); Lymphocytes % (A) 23 %; MCH 32.9 pg (25.0-35.0); MCHC 34.4 g/dL (31.0-37.0); MCV 95.7 fL (80.0-100.0); Mean Platelet Volume 6.7; Monocytes # (A) 0.5 k/uL (0-1.0); Monocytes % (A) 5 %; Neutrophils # (A) 6.6 k/uL (1.3-7.7); Neutrophils % (A) 69 %; Platelet Count 203 k/uL (150-450); RBC 2.99 m/uL (3.80-5.40); RDW 12.5 % (11.5-15.5); WBC 9.5 k/uL (3.8-10.6)
[2018-10-18 08:34] LABS: HGB 9.8 gm/dL (11.4-16.0)
[2018-10-18] MEDS ORDERED: NON-FORMULARY DRUG (Aspirin Ec 81 MG) PO SCH (09:00)
[2018-10-18] MEDS: SODIUM CHLORIDE 0.9% 1,000 ML IV SCH (09:27)
[2018-10-18] MEDS: ASPIRIN 325 MG TAB PO SCH ×2 (09:27→21:30)
[2018-10-18] MEDS: ATORVASTATIN 20 MG TAB PO SCH (09:27)
--- NOTE | 2018-10-18 11:19 | P.DS ---
Providers Date of admission: 10/17/18 05:41 Expected date of discharge: 10/18/18 Attending physician: Sabas Pearson Consults: 10/17/18 07:02 Consult Physician Routine Consulting Provider: Nikki Dela Cruz Consult Reason/Comments: medical management Do you want consulting provider notified?: Yes 10/17/18 09:03 Consult Physician Routine Consulting Provider: Cherry Spangler Consult Reason/Comments: medical management Do you want consulting provider notified?: Yes Primary care physician: Nikki Dela Cruz - Discharge Diagnosis(es) (1) Primary osteoarthritis of left hip Current Visit: Yes Status: Acute (2) Status post total hip replacement, left Current Visit: Yes Status: Acute Hospital Course: This is a 57-year-old female with known history of degenerative arthritis of the left hip. The patient presents for evaluation. After discussion and consideration patient elects to proceed with total hip arthroplasty. The patient is seen preoperatively by Dr. Pearson and medically cleared for surgery by their primary care physician. Patient is admitted to [facility] on 10/17/2018 for total hip arthroplasty. The procedures performed without complication or sequelae. The patient is doing well postoperatively. Labs and vital signs are stable on day of discharge. On day of discharge patient's hip incision is healing well. There is minimal erythema. There is no drainage noted at this time. There is minimal soft tissue swelling to the hip and thigh. Patient has full foot and ankle motion without difficulty or pain. Neurovascular status to the left lower extremity is intact. Patient is discharged home in good condition. Please see med rec for accurate list of home medications. Plan - Discharge Summary Discharge Rx Participant: Yes New Discharge Prescriptions: New Aspirin 325 mg PO BID #60 tab HYDROcodone/APAP 5-325MG [[place] 5-325] 1 - 2 tab PO Q4-6H PRN #84 tab PRN Reason: Pain Sennosides [Senokot] 1 tab PO BID #60 tablet No Action Nitroglycerin Sl Tabs [Nitrostat] 0.4 mg SUBLINGUAL Q5M PRN PRN Reason: Chest Pain Cyanocobalamin (Vitamin B-12) [Vitamin B12] 2,500 mcg PO DAILY Acetaminophen [Tylenol 8 Hour] 650 mg PO Q8H PRN PRN Reason: Pain Control Magnesium Oxide [Mag-Ox] 250 mg PO HS Aspirin EC [Ecotrin Low Dose] 81 mg PO DAILY Simvastatin [Zocor] 20 mg PO HS Cholecalciferol [Vitamin D3] 1,000 unit PO DAILY Posto7 1 each PO DAILY Flaxseed 1400 Mg 1,400 mg PO DAILY Fluticasone Nasal [place] [Flonase Nasal [place]] 1 spray EA NOSTRIL DAILY PRN PRN Reason: Nasal Congestion Albuterol Inhaler [Ventolin Hfa Inhaler] 2 puff INHALATION RT-BID Turmeric Root Extract [Turmeric] 3,000 mg PO DAILY Gwen Root 2 cap PO BID-W/MEALS PRN PRN Reason: Nausea Cyclobenzaprine [Flexeril] 5 mg PO BID PRN PRN Reason: Pain Atorvastatin [Lipitor] 20 mg PO DAILY Glucosamine/Chondr Saba A Sod [Osteo Bi-Flex Caplet] 2 each PO DAILY Collgen Pure 2 cap PO DAILY Discharge Medication List Acetaminophen [Tylenol 8 Hour] 650 mg PO Q8H PRN 05/04/18 [History] Aspirin EC [Ecotrin Low Dose] 81 mg PO DAILY 05/04/18 [History] Cholecalciferol [Vitamin D3] 1,000 unit PO DAILY 05/04/18 [History] Cyanocobalamin (Vitamin B-12) [Vitamin B12] 2,500 mcg PO DAILY 05/04/18 [History ] Flaxseed 1400 Mg 1,400 mg PO DAILY 05/04/18 [History] Posto7 1 each PO DAILY 05/04/18 [History] Magnesium Oxide [Mag-Ox] 250 mg PO HS 05/04/18 [History] Nitroglycerin Sl Tabs [Nitrostat] 0.4 mg SUBLINGUAL Q5M PRN 05/04/18 [History] Simvastatin [Zocor] 20 mg PO HS 05/04/18 [History] Albuterol Inhaler [Ventolin Hfa Inhaler] 2 puff INHALATION RT-BID 06/08/18 [ History] Fluticasone Nasal [place] [Flonase Nasal [place]] 1 spray EA NOSTRIL DAILY PRN 06/08 [History] Turmeric Root Extract [Turmeric] 3,000 mg PO DAILY 06/08/18 [History] Gwen Root 2 cap PO BID-W/MEALS PRN 06/13/18 [History] Cyclobenzaprine [Flexeril] 5 mg PO BID PRN 07/26/18 [History] Atorvastatin [Lipitor] 20 mg PO DAILY 10/10/18 [History] Collgen Pure 2 cap PO DAILY 10/10/18 [History] Glucosamine/Chondr Saba A Sod [Osteo Bi-Flex Caplet] 2 each PO DAILY 10/10/18 [ History] Aspirin 325 mg PO BID #60 tab 10/18/18 [Rx] HYDROcodone/APAP 5-325MG [[place] 5-325] 1 - 2 tab PO Q4-6H PRN #84 tab 10/18/18 [ Rx] Sennosides [Senokot] 1 tab PO BID #60 tablet 10/18/18 [Rx] Follow up Appointment(s)/Referral(s): [facility], [NON-STAFF] - Sabas Pearson DO [Doctor of Osteopathic Medicine] - 11/02/18 1:00 pm Activity/Diet/Wound Care/Special Instructions: Weightbearing as tolerated with walker. Leave dressing intact. Dressing may be removed by home care nurse in 10 days. May shower with dressing on. Please follow-up with [facility] in 2 weeks and call with any questions or concerns, . Discharge Disposition: HOME WITH HOME HEALTH SERVICES
[2018-10-18] MEDS ORDERED: CYANOCOBALAMIN 500 MCG TAB PO SCH (12:00)
--- NOTE | 2018-10-18 12:52 | P.PN ---
Subjective Progress Note Date: 10/18/18 The patient was seen and examined at the bedside. She notes continued 6/10 pain of the L hip at rest but otherwise denying any active complaints. She is passing flatus and urine but hasn't had a BM yet. She otherwise denied chest pain, SOB, nausea, vomiting, dizziness, headache, weakness, or numbness. Objective - Vital Signs Vital signs: Vital Signs Temp 98.2 F 10/18/18 09:23 Pulse 70 10/18/18 09:23 Resp 16 10/18/18 09:23 BP 97/59 10/18/18 09:23 Pulse Ox 96 10/18/18 09:23 Intake & Output 10/17/18 10/18/18 10/18/18 18:59 06:59 18:59 Intake Total 50 1230 Output Total 150 Balance -100 1230 Weight 62.596 kg Intake: IV 50 Intake, IV Titration 1230 Amount Sodium Chloride 0.9% 1, 1230 000 ml @ 70 mls/hr IV . [id number] [facility] Rx#:[id number] Output: Estimated Blood Loss 150 Other: # Voids 2 - Exam General: Non-toxic, in no acute distress, appears stated age HEENT: NC/AT, anicteric sclerae, moist conjunctiva, no lid-lag, PERRLA Cardiovascular: S1/S2 wnl, no murmurs, rubs, or gallops Lungs: Clear to auscultation, normal respiratory effort, no accessory muscle use Abdominal: Soft, nontender, non-distended, no guarding, rebound, or rigidity Skin: Warm, dry Extremities: L hip replacement, dressing in place, clean, no surrounding erythema or edema noted Psychiatric: Alert and oriented to person, place and time, appropriate affect, Intact judgment Neuro: CN II-XII grossly intact, Strength 5/5 in all extremities except LLE due to pain, Speech intact, Sensation to light touch grossly intact throughout - Labs CBC & Chem 7: 10/18/18 07:15 Labs: Abnormal Lab Results - Last 24 Hours (Table) 10/18/18 Range/Units 07:15 RBC 2.99 L (3.80-5.40) m/uL Hgb 9.8 L D (11.4-16.0) gm/dL Hct 28.6 L (34.0-46.0) % Assessment and Plan Plan: Post-operative pain -Will defer to the orthopedic service -Currently on [place], Dilaudid, and Mobic Borderline systolic blood pressure -Asymptomatic -Will monitor HLD -C/w home meds
[2018-10-18] MEDS ORDERED: LORazepam 0.5 MG TAB PO STA (15:46)
[2018-10-18 19:19] LABS: Glucose,Whole Blood 123 mg/dL (75-99)
[2018-10-18] MEDS: SENNOSIDES-DOCUSATE SODIUM 1 EACH TAB PO SCH (21:30)
[2018-10-18] MEDS: MAGNESIUM OXIDE 400 MG TAB PO SCH (21:30)
[2018-10-19] MEDS: SODIUM CHLORIDE 0.9% 1,000 ML IV SCH (03:54)
[2018-10-19] MEDS: LACTATED RINGERS 1,000 ML IV SCH (03:55)
[2018-10-19] MEDS: HYDROcodone/APAP 5-325MG 1 EACH TAB PO PRN ×2 (05:46→11:38)
[2018-10-19 08:12] VITALS: BP 118/61; PULSE 81; RESP 19; TEMP 98.4
[2018-10-19] MEDS: ASPIRIN 325 MG TAB PO SCH (08:51)
[2018-10-19] MEDS: ATORVASTATIN 20 MG TAB PO SCH (08:51)
--- NOTE | 2018-10-19 11:56 | P.PN ---
Subjective Progress Note Date: 10/19/18 The patient was seen and examined at the bedside. While getting up from the bed yesterday for her discharge, the patient had dizziness and some chest discomfort. She endorsed feeling anxious and notes she has gotten similar episodes in the past, multiple times when she was in pain or feeling anxious. The patient was given a single dose of ativan and her symptoms resolved within a few minutes. EKG was obtained and was unremarkable. The patient was given more IVFs and her BP improved. She did not have recurrence of her symptoms. She has been ambulating unremarkably. She denied chest pain, SOB, nausea, vomiting, diaphoresis, fever, chills, visual disturbances, dizziness, or headaches. Objective - Vital Signs Vital signs: Vital Signs Temp 98.4 F 10/19/18 07:32 Pulse 81 10/19/18 07:32 Resp 19 10/19/18 07:32 BP 118/61 10/19/18 07:32 Pulse Ox 91 L 10/19/18 07:32 Intake & Output 10/18/18 10/19/18 10/19/18 18:59 06:59 18:59 Intake Total 1570 Balance 1570 Intake: Intake, IV Titration 1120 Amount Sodium Chloride 0.9% 1, 1120 000 ml @ 70 mls/hr IV . [id number] [facility] Rx#:[id number] Oral 450 Other: Voiding Method Toilet # Voids 2 - Exam General: Non-toxic, in no acute distress, appears stated age HEENT: NC/AT, anicteric sclerae, moist conjunctiva, no lid-lag, PERRLA Cardiovascular: S1/S2 wnl, no murmurs, rubs, or gallops Lungs: Clear to auscultation, normal respiratory effort, no accessory muscle use Abdominal: Soft, nontender, non-distended, no guarding, rebound, or rigidity Skin: Warm, dry Extremities: L hip replacement, dressing in place, clean, no surrounding erythema or edema noted Psychiatric: Alert and oriented to person, place and time, appropriate affect, Intact judgment Neuro: CN II-XII grossly intact, Strength 5/5 in all extremities except LLE due to pain, Speech intact, Sensation to light touch grossly intact throughout - Labs CBC & Chem 7: 10/18/18 07:15 Labs: Abnormal Lab Results - Last 24 Hours (Table) 10/18/18 Range/Units 19:08 POC Glucose (mg/dL) 123 H (75-99) mg/dL Assessment and Plan Plan: Dizziness, chest discomfort, resolved -Possibly related to anxiety vs borderline BP -BP improved with IVFs -Patient advised to f/u with her PCP and to go to the nearest ED if the symptoms recur -Patient also advised to be careful when standing up Postoperative pain -As per the orthopedic service HLD -C/w home meds
== END 2018-10-19 12:01 | disposition home health service (06) | DRG 470 ==
LOC: 2ORMAIN 05:41 → 4SSUR 08:33
PROVIDERS: ADMIT Orthopaedic Surgery; ATTEND Orthopaedic Surgery
PROC: 30233N0 Transfusion of Autologous Red Blood Cells into Peripheral Vein, Percutaneous Approach (ICD-10-PCS; 2018-10-17)
PROC: 0SRB06A Replacement of Left Hip Joint with Oxidized Zirconium on Polyethylene Synthetic Substitute, Uncemented, Open Approach (ICD-10-PCS; principal; 2018-10-17 07:00)
DX: M16.12 Unilateral primary osteoarthritis, left hip (principal); J70.1 Chronic and other pulmonary manifestations due to radiation; D64.9 Anemia, unspecified; E78.5 Hyperlipidemia, unspecified; I25.2 Old myocardial infarction; M51.36 Other intervertebral disc degeneration, lumbar region; E03.9 Hypothyroidism, unspecified; F41.9 Anxiety disorder, unspecified; G89.29 Other chronic pain; J45.909 Unspecified asthma, uncomplicated; I83.90 Asymptomatic varicose veins of unspecified lower extremity; F17.210 Nicotine dependence, cigarettes, uncomplicated; Z79.82 Long term (current) use of aspirin; Z79.899 Other long term (current) drug therapy; Z87.01 Personal history of pneumonia (recurrent); Z85.3 Personal history of malignant neoplasm of breast; Z90.12 Acquired absence of left breast and nipple; Z88.1 Allergy status to other antibiotic agents; Z88.8 Allergy status to other drugs, medicaments and biological substances; Z80.9 Family history of malignant neoplasm, unspecified
CPT/HCPCS: 73501; 85025; 86850; 86891; 86900; 86901; 88300; 93005

== ENCOUNTER → 2019-07-26 | Outpatient (CLI) | payer OTHER ==
[2019-07-26 11:35] VITALS: BP 126/80; PULSE 69; RESP 18
--- NOTE | 2019-07-27 08:42 | P.PAINPG ---
Subjective Progress Note Date: 07/26/19 This is a follow-up visit for this 58-year-old female with a chronic history of severe low back pain, patient diagnosed with lumbar spondylosis, and lumbar degenerative disc disease, and left hip osteoarthritis, status post left total hip arthroplasty we have done diagnostic medial branch block lumbar area L3 to S1 , 2 , and he continued to have pain after the diagnostic medial branch block and reevaluation after the block which was done a few months ago showed that patient continues to have severe left hip pain, and he thought that most of the pain at that time was secondary to osteoarthritis of the left hip, and patient was referred to see orthopedic surgeon for evaluation and orthopedic surgeon Dr. Pearson he did left total hip replacement, her low back pain on the left side improved but she continued to have severe pain in the low back area, bilaterally, she denies any motor or sensory deficit she denies any fever or night sweats Objective - Vital Signs Vital signs: Vital Signs Temp Pulse 69 07/26/19 11:31 Resp 18 07/26/19 11:31 BP 126/80 07/26/19 11:31 Pulse Ox 97 07/26/19 11:31 - Exam Physical Examinations : -Constitutiona : Cooperative , not in acute distress . -HEENT : nech : supple , no Lymphadenopathy , normal thyroid size . eyes : no ptosis , no icterus, no photophobia . - neurologic : Cranial nerve II to XII intact , no focal neurological deffecit . -psychatric : alert , oriented X 3 , appropriate affect , intact judgment and insight . -Lymphatic : no Lymphadenopathy . - musculoskeltal : Lumber spine moter stegnth lower extremities ,thigh and legs 5/5 Right side , 5/5 Left side deep tendon reflexes : normal Knee Jerk , normal ankle Jerk positive lumber facet Loading Test Range of motion of the lumbar spine Flexion 30 degrees, extension 10 degrees strait leg raising test , positive at 45 degree Fabere test positive RT and positive LT . tenderness over the Sacroiliac joint on the R and L sides Assessment and Plan Plan: Assessment and plan=1-osteoarthritis of the left hip status post left hip arthroplasty. 2-lumbar spondylosis with lumbar facet arthropathy. 3-lumbar degenerative disc disease. Previously we have done diagnostic medial branch block under area which was done a few months ago and it was negative for any improvement, at that time I felt that the pain mostly secondary to osteoarthritis of the left hip For this reason we did not proceed with the RFA of the lumbar medial branch , patient had left total hip arthroplasty done a few months ago, and I strongly believe, that most of her pain is coming from the facetogenic component This reason patient will be good candidate to have diagnostic medial branch block lumbar area and L3, L4, L5 x2 (without steroid ) She had also succumbed to a component causing her low back pain which is lumbar degenerative disc disease patient is not a candidate to have lumbar epidural steroid injection because she had ALLERGY to steroid Time with Patient: Less than 30 PQRS Measure Charge Sheet Measure #130: Documentation of Current Meds in Medical Chart: Patient's medications documented in chart Measure #226: Tobacco Use: Screen & Cessation Intervention: Pt screened for tobacco use AND intervention given Measure #111: Pneumonia Vaccination: Pneumococcal vaccine administered or previously received Measure #47: Advance Care Plan: Advance care planning discussed & documented, pt chose/unable to give Measure #412: Opioid Treatment Agreement: No documentation of signed opioid treatment agreement Measure #408: Opioid Therapy Follow-up Evaluation: Patient had NO f/u eval minimum every 3 months during opioid therapy Measure #317: Preventitive Care & Scrn High Bld Press & F/U: Normal blood pressure, f/u not required Measure #128: Body Mass Index (BMI) Screening & Follow-up: BMI documented within normal parameters Measure #131: Pain Assessment & Follow-up: Pain positive & plan documented, Fol low-up scheduled Measure #431: Unhealthy Alcohol Use Preventative Care & Scrn: Patient not identified as an unhealthy alcohol user PQRS Narrative: Smoking Status Current every day smoker Blood Pressure 126/80 Pain Intensity [Lower Back] 7 Scale Used Numeric (1 - 10) Hx Alcohol Use (MH) No Home Medications: Ambulatory Orders Aspirin EC [Ecotrin Low Dose] 81 mg PO DAILY 05/04/18 Cholecalciferol [Vitamin D3] 1,000 unit PO DAILY 05/04/18 Cyanocobalamin (Vitamin B-12) [Vitamin B12] 2,500 mcg PO DAILY 05/04/18 Magnesium Oxide [Mag-Ox] 250 mg PO HS 05/04/18 Nitroglycerin Sl Tabs [Nitrostat] 0.4 mg SUBLINGUAL Q5M PRN 05/04/18 Albuterol Inhaler [Ventolin Hfa Inhaler] 2 puff INHALATION RT-BID 06/08/18 Fluticasone Nasal [place] [Flonase Nasal [place]] 1 spray EA NOSTRIL DAILY PRN 06/08/18 Turmeric Root Extract [Turmeric] 3,000 mg PO DAILY 06/08/18 Gwen Root 2 cap PO BID-W/MEALS PRN 06/13/18 Cyclobenzaprine [Flexeril] 5 mg PO BID PRN 07/26/18 Collgen Pure 2 cap PO DAILY 10/10/18 Acetaminophen [Tylenol Arthritis] 650 mg PO Q8H PRN 06/29/19 Fenofibrate Nanocrystallized [Fenofibrate] 145 mg PO DAILY 06/29/19 Glucosamine/Chondr Saba A Sod [Osteo Bi-Flex Caplet] 1 each PO DAILY 06/29/19 Simvastatin [Zocor] 20 mg PO HS 07/24/19 Controlled Substance Measures - Controlled Substance Measures Is patient prescribed a controlled substance at discharge?: No
== END | disposition home or self-care (01) ==
LOC: PNWHC3 11:13
PROVIDERS: ATTEND Specialist
DX: G89.29 Other chronic pain (principal); M16.12 Unilateral primary osteoarthritis, left hip; M47.816 Spondylosis without myelopathy or radiculopathy, lumbar region; M46.96 Unspecified inflammatory spondylopathy, lumbar region; M51.36 Other intervertebral disc degeneration, lumbar region; F17.200 Nicotine dependence, unspecified, uncomplicated; Z96.642 Presence of left artificial hip joint; Z79.899 Other long term (current) drug therapy; Z79.82 Long term (current) use of aspirin
CPT/HCPCS: 99211